=== PATIENT | male | born 1980 | race Caucasian/White ===

== ENCOUNTER 2017-02-09 12:44 | Emergency (ER) | payer OTHER ==
--- NOTE | 2017-02-09 13:29 | EDM.PDOC ---
ED HPI GENERAL MEDICAL PROBLEM - General Chief Complaint: Skin Complaint Stated Complaint: POSSIBLE INFECTION RT ARM Time Seen by Provider: 02/09/17 13:15 Source of Information: Reports: Patient History Limitations: Reports: No Limitations - History of Present Illness INITIAL COMMENTS - FREE TEXT/NARRATIVE: HISTORY AND PHYSICAL: History of present illness: Patient comes to the emergency room complaining of right forearm swelling. This is been an ongoing problem for him over the past couple of months for which he has followed with his primary care provider in [place], [place]. He had a tattoo placed on his right forearm on February 06. Since then he has noticed continued swelling to his right forearm. He has tried to elevate his arm above the level of his heart to reduce swelling and now has some numbness to his right shoulder. He is concerned that he may have developed an infection in his arm. He has not had any pain to his arm and no redness appreciated. he requests that sepsis be ruled out. He has not had any fever or chills. No chest pain shortness of breath or difficulty breathing. No abdominal pain nausea vomiting. He has no other complaints or concerns at this time. Review of systems: As per history of present illness and below otherwise all systems reviewed and negative. Past medical history: As per history of present illness and as reviewed below otherwise noncontributory. Surgical history: As per history of present illness and as reviewed below otherwise noncontributory. Social history: No reported history of drug or alcohol abuse. Family history: As per history of present illness and as reviewed below otherwise noncontributory. Physical exam: HEENT: Atraumatic, normocephalic. Extremities: Fresh tattoo to R medial forearm. No erythema, bruising or wounds noted. Mild swelling appreciated when compared to L forearm. No abnormalities appreciated to R shoulder. Neurovascular unremarkable. Neuro: Awake, alert, oriented. . Motor and sensory unremarkable throughout. Exam nonfocal. Diagnostics: [CBC] Impression: [R arm swelling] Plan: [Discussed with patient that his CBC is within normal limits and no indication of infection is found. Recommend he continue to monitor and follow up with his PCP regarding his chronic forearm swelling. He is in agreement with today's plan. All of his questions are answered and concerns are addressed.] Definitive disposition and diagnosis as appropriate pending reevaluation and review of above. right shoulder Pain Score (Numeric/FACES): 4 - Related Data Allergies Allergy/AdvReac Type Severity Reaction Status Date / Time No Known Allergies Allergy Verified 02/09/17 12:54 Home Meds: Home Meds . [No Known Home Meds] 02/09/17 [History] Past Medical History - Infectious Disease History Infectious Disease History: Reports: Chicken Pox - Past Surgical History HEENT Surgical History: Reports: Oral Surgery GI Surgical History: Reports: Other (See Below) Other GI Surgeries/Procedures: colon removal. pt reports he had colon cancer. Musculoskeletal Surgical History: Reports: Other (See Below) Other Musculoskeletal Surgeries/Procedures:: arm, knee surgery Social & Family History - Family History Family Medical History: Noncontributory - Tobacco Use Smoking Status *Q: Never Smoker - Recreational Drug Use Recreational Drug Use: No ED ROS GENERAL - Review of Systems Review Of Systems: ROS reveals no pertinent complaints other than HPI. ED EXAM, SKIN/RASH Exam: See Below Course - Vital Signs Last Recorded V/S: Last Vital Signs Temp 98.0 F 02/09/17 12:54 Pulse 73 02/09/17 12:54 Resp 18 02/09/17 12:54 BP 142/96 H 02/09/17 12:54 Pulse Ox 96 02/09/17 12:54 - Orders/Labs/Meds Labs: Laboratory Tests 02/09/17 Range/Units 13:29 WBC 7.35 (4.0-11.0) K/uL RBC 5.45 (4.50-5.90) M/uL Hgb 15.9 (13.0-17.0) g/dL Hct 45.5 (38.0-50.0) % MCV 83.5 (80.0-98.0) fL MCH 29.2 (27.0-32.0) pg MCHC 34.9 (31.0-37.0) g/dL RDW Std Deviation 40.0 (28.0-62.0) fl RDW Coeff of Elena 13 (11.0-15.0) % Plt Count 237 (150-400) K/uL MPV 8.90 (7.40-12.00) fL Neut % (Auto) 67.4 (48.0-80.0) % Lymph % (Auto) 24.6 (16.0-40.0) % [place] % (Auto) 7.6 (0.0-15.0) % Eos % (Auto) 0.3 (0.0-7.0) % Baso % (Auto) 0.1 (0.0-1.5) % Neut # (Auto) 5.0 (1.4-5.7) K/uL Lymph # (Auto) 1.8 (0.6-2.4) K/uL [place] # (Auto) 0.6 (0.0-0.8) K/uL Eos # (Auto) 0.0 (0.0-0.7) K/uL Baso # (Auto) 0.0 (0.0-0.1) K/uL Nucleated RBC % 0.0 /100WBC Nucleated RBCs # 0 K/uL Departure - Departure Time of Disposition: 13:45 Disposition: Home, Self-Care 01 Condition: Good Clinical Impression: Swelling of right upper extremity - Discharge Information Referrals: PCP,None [Primary Care Provider] - Forms: ED Department Discharge Additional Instructions: The following information is given to patients seen in the emergency department who are being discharged to home. This information is to outline your options for follow-up care. We provide all patients seen in our emergency department with a follow-up referral. The need for follow-up, as well as the timing and circumstances, are variable depending upon the specifics of your emergency department visit. If you don't have a primary care physician on staff, we will provide you with a referral. We always advise you to contact your personal physician following an emergency department visit to inform them of the circumstance of the visit and for follow-up with them and/or the need for any referrals to a consulting specialist. The emergency department will also refer you to a specialist when appropriate. This referral assures that you have the opportunity for follow-up care with a specialist. All of these measure are taken in an effort to provide you with optimal care, which includes your follow-up. Under all circumstances we always encourage you to contact your private physician who remains a resource for coordinating your care. When calling for follow-up care, please make the office aware that this follow-up is from your recent emergency room visit. If for any reason you are refused follow-up, please contact the [facility] emergency department at and asked to speak to the emergency department charge nurse. CAMILA [facility] [address] [place] [id number] Follow-up with her local primary care provider at the clinic listed above within the next week. Your CBC shows no infection or abnormalities. Take ibuprofen as needed for swelling if it bothers you. Return to ER as needed as discussed.
== END 2017-02-09 14:08 | disposition home or self-care (01) ==
LOC: MW.ED 12:44
DX: R22.31 Localized swelling, mass and lump, right upper limb (principal)
CPT/HCPCS: 36415; 85025; 99283